=== PATIENT | female | born 1995 ===

== ENCOUNTER → 2023-01-24 | Outpatient (REF) ==
[2023-01-26 05:07] LABS: HERPES ZOSTER, VARICELLA IgG <135 index (Immune >165)
== END ==
LOC: M LAB 14:19
PROVIDERS: ATTEND Nurse Practitioner Adult Health
DX: Z00.00 Encounter for general adult medical examination without abnormal findings (principal)

== ENCOUNTER → 2023-01-26 | Outpatient (REF) | LOC: M LAB 14:25 | PROVIDERS: ATTEND Nurse Practitioner Adult Health | DX: Z02.89 Encounter for other administrative examinations (principal) ==

== ENCOUNTER → 2023-04-07 | Outpatient (REF) | LOC: M EMP 11:37 | PROVIDERS: ATTEND Family Medicine | DX: Z11.52 Encounter for screening for COVID-19 (principal) ==

== ENCOUNTER → 2023-07-22 | Outpatient (REF) | LOC: M EMP 09:55 | PROVIDERS: ATTEND Family Medicine | DX: Z11.52 Encounter for screening for COVID-19 (principal) ==